=== PATIENT | male | born 1940 | race Caucasian/White ===

== ENCOUNTER 2020-10-25 06:47 | Emergency (ER) | payer OTHER ==
[~2020-10-25] VITALS: Ht 167.6 cm; Wt 67.1 kg
[2020-10-25 08:42] LABS: URINE BILIRUBIN NEGATIVE (Negative); URINE BLOOD 3+ (Negative); URINE CLARITY CLEAR; URINE COLOR YELLOW; URINE GLUCOSE-RANDOM* NEGATIVE (Negative); URINE KETONES NEGATIVE (Negative); URINE NITRITE-REFLEX NEGATIVE (Negative); URINE PROTEIN (DIPSTICK) 1+ (Negative); URINE SPECIFIC GRAVITY 1.015 (1.005-1.035); URINE UROBILINOGEN 0.2 E.U./dl (0.2-1.0)
[2020-10-25 08:45] LABS: URINE LEUKOCYTES-REFLEX 1+ (Negative)
[2020-10-25 08:51] LABS: BACTERIA-REFLEX 1-9 Few /HPF (None Seen); CRYSTALS None Seen /LPF (None Seen); SQUAMOUS None Seen /LPF (0-3); URINE RBC >20 Many /HPF (NONE SEEN); URINE WBC-REFLEX 6-15 Few /HPF (0-5)
[2020-10-25] MEDS ORDERED: CEPHALEXIN500 MG PO (09:11)
[2020-10-25 09:13] VITALS: BP 118/63
== END 2020-10-25 09:13 | disposition home or self-care (01) ==
LOC: ER 06:47
PROVIDERS: Emergency Medicine
DX: N39.0 Urinary tract infection, site not specified (principal); I10 Essential (primary) hypertension; E03.9 Hypothyroidism, unspecified; Z85.46 Personal history of malignant neoplasm of prostate

== ENCOUNTER 2020-10-28 09:38 | Inpatient (IN) | payer OTHER ==
[~2020-10-28] VITALS: Ht 170.2 cm; Wt 68.9 kg
[~2020-10-28 09:38] MED LIST: CEPHALEXIN500 MG PO
[2020-10-28 09:48] VITALS: BP 161/92
[2020-10-28 10:15] LABS: ABSOLUTE NEUTROPHILS 3.9 thou/uL (1.4-8.2); BASOPHILS 0.7 % (0.0-2.0); EOSINOPHILS 2.2 % (0.0-3.0); HEMATOCRIT 39.6 % (42.0-52.0); HEMOGLOBIN 13.3 gm/dL (14.0-18.0); LYMPHOCYTES 10.7 % (24.0-44.0); MCHC 33.5 g/dL (28.0-37.0); MCV 98.5 fL (80.0-100.0); MONOCYTES 10.3 % (1.0-8.0); PLATELET COUNT 373 thou/uL (150-400); POLYS 76.1 % (36.0-66.0); RBC 4.02 mil/uL (4.50-6.00); RDW 14.4 % (10.5-14.5); WBC 5.1 thou/uL (4.0-11.0)
[2020-10-28 10:28] LABS: POTASSIUM 4.3 mmol/L (3.5-5.1)
[2020-10-28 10:38] LABS: ALBUMIN 3.4 g/dL (3.4-5.0); TOTAL BILIRUBIN 0.5 mg/dL (0.2-1.0); TOTAL PROTEIN 7.3 g/dL (6.4-8.2)
[2020-10-28 11:29] LABS: URINE BILIRUBIN NEGATIVE (Negative); URINE BLOOD NEGATIVE (Negative); URINE CLARITY CLEAR; URINE COLOR YELLOW; URINE GLUCOSE-RANDOM* 1+ (Negative); URINE KETONES NEGATIVE (Negative); URINE LEUKOCYTES-REFLEX NEGATIVE (Negative); URINE NITRITE-REFLEX NEGATIVE (Negative); URINE PROTEIN (DIPSTICK) NEGATIVE (Negative); URINE UROBILINOGEN 0.2 E.U./dl (0.2-1.0)
[2020-10-28 17:05] VITALS: BP 172/90
[2020-10-28 17:50] VITALS: BP 141/82
[2020-10-28 18:09] VITALS: BP 139/85
[2020-10-28 20:17] VITALS: BP 104/61
--- NOTE | 2020-10-29 02:27 | NUR ---
PT ADMITTED TO THE UNIT AT 1815.PT CARE ASSUMED WITH PT COMFORTABLE IN BED.PT IS A/O X4.PT IS UP WITH STANDBY ASSIST WITH WALKER TO BATHROOM.PT IS ABLE TO CALL APPROPRIETELY FOR HELP.ADMISSION HISTORY AND ASSESSMENT DONE.T ON ROOM AIR.PT DENIED PAIN.PT HAS SOME BRUSING AROUND RT EYE.IV ACCESS ON RT AC SL.PT TO BRING LIST OF MEDICATION THIS AM FOR MED RECONCILIATION.WILL CONTINUE TO MONITOR AND ENDORSE TO DAY NURSE.
[2020-10-29 05:44] LABS: HEMATOCRIT 38.2 % (42.0-52.0); HEMOGLOBIN 13.3 gm/dL (14.0-18.0); MCH 34.3 pg (26.0-34.0); MCHC 34.7 g/dL (28.0-37.0); MCV 98.8 fL (80.0-100.0); RBC 3.87 mil/uL (4.50-6.00); RDW 14.6 % (10.5-14.5); WBC 5.7 thou/uL (4.0-11.0)
[2020-10-29 05:48] LABS: CALCIUM 8.8 mg/dL (8.5-10.1); POTASSIUM 4.5 mmol/L (3.5-5.1)
[2020-10-29 05:52] LABS: PHOSPHORUS 4.1 mg/dL (2.6-4.7)
[2020-10-29 07:27] VITALS: BP 137/83
--- NOTE | 2020-10-29 11:58 | EKG ---
[address] [place] [address] ELECTROCARDIOGRAM REPORT Name: MELVIN MCDOWELL Room #: 457-P ADM IN M.R.#: [id number] Admission: 10/28/20 Attend Phys: Josie French Discharge: Date of : 42 Report #: [id number] [facility] ED Test Date: 2020-10-28 Test Time: 09:49:28 Pat Name: MELVIN MCDOWELL Department: Room: [facility] Gender: M Cross Roller: SHANELL : 1940 Requested By: Josie French Order Number: [id number] MD: Shorty Maloney Measurements Intervals [place] Rate: 70 P: 66 TX: 191 QRS: -12 QRSD: 116 T: 46 QT: 404 QTc: 436 Interpretive Statements Sinus rhythm Nonspecific intraventricular conduction delay Anterior infarct, old Minimal ST depression, lateral leads No previous ECG available for comparison Electronically Signed On 10-29-2020 11:58:29 CDT by Shorty Maloney [email or web address] <ELECTRONICALLY SIGNED> By: Shorty Maloney MD 10/29/20 1158 0949 0949 Shorty Maloney MD /ISI
[2020-10-29 17:16] VITALS: BP 108/66
--- NOTE | 2020-10-29 18:48 | NUR ---
PT AMBULATED UNIQUE AND COMPLETED DAILY CARE BY SELF THIS SHIFT. DENIED PAIN OR SOA.
[2020-10-29 20:03] VITALS: BP 114/63
--- NOTE | 2020-10-30 02:37 | NUR ---
PT CARE ASSUMED WITH PT IN BED WATCHING TV.PT IS A/O X4.PT IS UP WITH STANDBY ASSIST TO BATHROOM.PT DOES PERSONAL HYGIENE BY SELF.PT DENIED PAIN N/V/D.PT ON ROOM AIR AND TAKE MEDS WHOLE WITH NO ISSUES.WILL CONTINUE TO MONITOR PER POC
[2020-10-30 06:04] LABS: CALCIUM 8.8 mg/dL (8.5-10.1); CREATININE 1.2 mg/dL (0.7-1.3); PHOSPHORUS 4.1 mg/dL (2.5-4.9); POTASSIUM 4.4 mmol/L (3.5-5.1)
--- NOTE | 2020-10-30 15:18 | NUR ---
PT RESTING COMFORTABLY WITH AT BEDSIDE. PT AFEBRILE, ADEQUATE UOP, NO BM, FAIR APPETITE. PT CONTINUES TO BE HYPONATREMIC. PT AND HAVE BEEN THOUROUGHLY UPDATED AND EDUCATED ON PT CONDITION AND POC. PT SLOWLY PROGRESSING TOWARDS POC.
--- NOTE | 2020-10-30 16:24 | NUR ---
PT ADMITTED RELATED TO HYPONATREMIA. CM REVEIWED CHART AND SPOKE WITH CARE TEAM. CM MET WITH PT AT BEDSIDE THIS DAY. PT IS FAMILIAR TO CM FROM PREVIOUS ADMISSIONS. CM RESIDES IN A HOUSE WITH HIS SPOUSE WITH A COUPLE STEPS TO ENTER AND NO STEPS INSIDE. PT INDICATED HE HAS A CANE AND A FWW FOR HOME USE. PT HAD BEEN ON SERVICE WITH [facility] A WEEK BEFORE ADMISSION. CM ASKED IF PT WAS RECEPTIVE TO HH UPON DC THIS TIME IF RECEOMMENDED PT INDICATED HE WASN'T SURE YET. CM FOLLOWING REGARDING DC PLANNING.
[2020-10-30 19:17] VITALS: BP 127/71
--- NOTE | 2020-10-31 03:59 | NUR ---
Pt. rested quietly during the night when checked on during frequent rounds. He offers no c/o pain. Up to the bathroom with stand by assistance. Bed alarm is on.
[2020-10-31 06:33] LABS: CALCIUM 8.8 mg/dL (8.5-10.1); CREATININE 1.1 mg/dL (0.7-1.3); POTASSIUM 4.6 mmol/L (3.5-5.1)
[2020-10-31 07:33] VITALS: BP 133/74
[2020-10-31 11:47] VITALS: BP 119/69
--- NOTE | 2020-10-31 16:03 | NUR ---
ASSUMED PT CARE THIS AM. PT A&OX4, ABLE TO MAKE NEEDS KNOWN. PATIENT UP WITH ASSIST TO THE BATHROOM, REMAINS CONTINENT. PATIENT REPORTING NO PAIN, NUMBNESS, OR TINGLING. IV PATENT, SALINE LOCKED. MEDICATIONS TAKEN WITHOUT ISSUE. PATIENT ON TELE. FALL PRECAUTIONS ARE IN PLACE, CALL LIGHT WITHIN REACH.
[2020-10-31 16:21] VITALS: BP 114/93
[2020-10-31 19:25] VITALS: BP 134/75
--- NOTE | 2020-11-01 03:54 | NUR ---
Pt. rested quietly during the night when checked on during frequet rounds. He offers no c/o pain or discomfort. Bed alarm is on.
[2020-11-01 07:19] VITALS: BP 133/69
[2020-11-01 09:54] LABS: CREATININE 1.2 mg/dL (0.7-1.3); POTASSIUM 4.6 mmol/L (3.5-5.1)
[2020-11-01 12:30] VITALS: BP 119/74
[2020-11-01] MEDS ORDERED: CEPHALEXIN500 MG PO (12:47)
--- NOTE | 2020-11-01 14:29 | NUR ---
PT TO DC HOME THIS DAY. PT TO DC HOME TO SELF CARE. PT HAS NEEDED DME. PT'S SPOUSE TO PROVIDE TRANSPORT HOME THIS DAY. NO OTHER CM INTERVENTION INDICATED. CASE CLOSED.
[2020-11-01 15:20] VITALS: BP 128/69
[2020-11-01 15:26] VITALS: BP 128/69
--- NOTE | 2020-11-01 15:29 | NUR ---
ASSUMED CARE OF PT AROUND 0700. THROUGHOUT THE DAY PT VOICED NO COMPLAINTS, VSS. AMBULATES WELL AND IS STABLE, NO COMPLAINTS OF PAIN. DISCHARGING NOW.
== END 2020-11-01 16:40 | disposition home or self-care (01) | DRG 641 ==
LOC: ER 09:38 → 4W 12:49 → EROBS 12:49 → 4W 17:50
PROVIDERS: Hospitalist; Student in an Organized Health Care Education/Training Program; ADMIT Hospitalist; ATTEND Hospitalist
DX: E87.1 Hypo-osmolality and hyponatremia (principal); N39.0 Urinary tract infection, site not specified; I10 Essential (primary) hypertension; E87.70 Fluid overload, unspecified; F41.9 Anxiety disorder, unspecified; I48.91 Unspecified atrial fibrillation; R63.1 Polydipsia; F39 Unspecified mood [affective] disorder; E03.9 Hypothyroidism, unspecified; Z96.653 Presence of artificial knee joint, bilateral; Z90.49 Acquired absence of other specified parts of digestive tract; Z85.46 Personal history of malignant neoplasm of prostate; Z92.3 Personal history of irradiation; Z88.5 Allergy status to narcotic agent; Z88.2 Allergy status to sulfonamides; Z87.440 Personal history of urinary (tract) infections
CPT/HCPCS: 10045

== ENCOUNTER 2020-12-02 15:26 | Inpatient (IN) | payer OTHER ==
[~2020-12-02] VITALS: Ht 167.6 cm; Wt 66.7 kg
[2020-12-02 15:41] VITALS: BP 150/86
[2020-12-02 16:28] LABS: ABSOLUTE NEUTROPHILS 4.3 thou/uL (1.4-8.2); BASOPHILS 0.6 % (0.0-2.0); EOSINOPHILS 2.4 % (0.0-3.0); HEMATOCRIT 39.9 % (42.0-52.0); HEMOGLOBIN 13.4 gm/dL (14.0-18.0); LYMPHOCYTES 12.5 % (24.0-44.0); MCH 33.1 pg (26.0-34.0); MCHC 33.4 g/dL (28.0-37.0); MCV 98.9 fL (80.0-100.0); MONOCYTES 11.9 % (1.0-8.0); PLATELET COUNT 249 thou/uL (150-400); POLYS 72.6 % (36.0-66.0); RBC 4.04 mil/uL (4.50-6.00); RDW 14.6 % (10.5-14.5); WBC 5.9 thou/uL (4.0-11.0)
[2020-12-02 16:32] LABS: URINE BILIRUBIN NEGATIVE (Negative); URINE BLOOD NEGATIVE (Negative); URINE CLARITY CLEAR; URINE COLOR YELLOW; URINE GLUCOSE-RANDOM* NEGATIVE (Negative); URINE KETONES NEGATIVE (Negative); URINE LEUKOCYTES-REFLEX NEGATIVE (Negative); URINE NITRITE-REFLEX NEGATIVE (Negative); URINE PROTEIN (DIPSTICK) NEGATIVE (Negative); URINE SPECIFIC GRAVITY 1.025 (1.005-1.035); URINE UROBILINOGEN 0.2 E.U./dl (0.2-1.0)
[2020-12-02 16:36] LABS: ANION GAP 8 mmol/L (7-16); BUN 26 mg/dL (7-18); CHLORIDE 101 mmol/L (98-107); CO2 26 mmol/L (21-32); CREATININE 1.1 mg/dL (0.7-1.3); GLUCOSE 119 mg/dL (74-106); POTASSIUM 4.9 mmol/L (3.5-5.1); SODIUM 135 mmol/L (136-145)
[2020-12-02 16:41] LABS: AMP/METHAMP Negative (Negative); BARBITURATES Negative (Negative); BENZODIAZEPINES Negative (Negative); COCAINE Negative (Negative); METHADONE Negative (Negative); OPIATES Negative (Negative); PCP Negative (Negative)
[2020-12-02 16:42] LABS: ALBUMIN 3.5 g/dL (3.4-5.0); DIRECT BILIRUBIN < 0.1 mg/dL (<0.1-0.2); SALICYLATE < 2.8 mg/dL (2.8-20.0); SGOT 48 U/L (15-37); SGPT 35 U/L (16-63); TOTAL BILIRUBIN 0.4 mg/dL (0.2-1.0); TOTAL PROTEIN 7.2 g/dL (6.4-8.2)
[2020-12-02 16:47] VITALS: BP 150/86
[2020-12-02] MEDS ORDERED: ZOLOFT25 MG PO (18:40)
[2020-12-02] MEDS ORDERED: VITAMIN D21250 MCG PO (18:41)
[2020-12-02] MEDS ORDERED: LEVOTHYROXINE75 MCG PO (18:42)
[2020-12-02] MEDS ORDERED: PROPAFENONE 22225 M1 PO (18:43)
[2020-12-02] MEDS ORDERED: PROPAFENONE 22225 MG (18:45)
[2020-12-02 23:20] VITALS: BP 126/72
--- NOTE | 2020-12-03 03:59 | NUR ---
12/03/20 0000 PATIENT ADMITTED FROM ER VIA WHEELCHAIR. PATIENT IS AAOX4. NO BELONGINGS BROUGHT WITH PATIENT. NO PAPERWORK BROUGHT WITH PATIENT. PATIET STATES THAT HE DOESNT NEED TO BE HERE. STATES THAT HE WAS NOT SUICIDAL REPORTED. PT STATES THAT HE BECAME CONFUSED BECAUSE HIS SODIUM LEVEL WAS LOW. PATIENT DID AGREE TO SIGN IN VOLUNTARILY. HE IS ABLE TO AMBULATE BUT IS UNSTEADY. WALKER WILL BE PROVIDED. VSS. NO SKIN ISSUES TO BE NOTED OTHER THAN A SCAR OVER HIS RIGHT EYE FROM FALL. WILL CONTINUE TO MONITOR FOR SAFETY.
[2020-12-03 07:01] LABS: CHOLESTEROL 169 mg/dL (<200); HDL CHOLESTEROL 52 mg/dL (>40); LDL CHOLESTEROL 101 mg/dL (<100); TC:HDL 3.3 Ratio (Not establshd); TRIGLYCERIDE 83 mg/dL (<150); VLDL 17 mg/dL (<40)
[2020-12-03 10:13] VITALS: BP 143/86
[2020-12-03 10:33] VITALS: BP 143/86
--- NOTE | 2020-12-03 15:41 | NUR ---
In person with pt. Pt. was in room. He was alert and oriented. The pt. was cooperative when answering quetions. He demonostrated appropriate affect, emotion and even made appropriate jokes. The pt. stated he was initially brought to the hospital by his daughter, Charlette, due to experiencing tremors and shakes. The pt. stated while talking to a hospital worker, he answered a question "wrong", resulting in the worker feeling that he had thoughts to harm himself. The pt. denies any suicidal ideation but does state he sometimes will think of not being here. However, the pt. denies any thoughts of taking any action towards this. The pt. reports being born in the [facility] located on [facility]. He has lived in [place] all his life. The pt. has lived in his current home for 38 years. He resides in the home with his daughter, Charlette. The pt. has a step-daughter that resides in [place], [place]. The pt.'s recently moved to an assisted living community. The pt. did not move with her as he stated he need to take care of cleaning up the home and getting it ready to sell. The pt. discussed having some emotions when his moved her things out of the home and knowing his needs some space; however, he states that he and his are not getting a divorce to his knowledge. The pt. states this situation has been stressful to him. He has lost weight and states his body feels worn down. Other than this, the pt. denies having any medication conditions with the exception of A-fib which has not been a problem for him in several years. The pt. is retired. 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 The pt. now receives $1700 monthly in [employer]. The pt. graduated from [employer]. He has taken a couple of college courses and manufacturing classes after high school. He was never in any branch of the service. The pt. was an only child. He was closer to his mother as his father was often on the road for work. The pt. has had some difficulties with sleeping. He states he eats well. The pt. reports to still driving. 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 The pt. describes himself as somewhere between Atheist and Agnostic. The pt. intended to return home with his daughter. He feels able to care for himself but does acknowledge some difficulties with memory. The pt. is able to make sandwiches, soup and other small things to eat. The pt. would like to work on regaining strength and getting rest while here. pt. now receives $1700 monthly in SSI. however, he states that he does not believe that he and her are getting a divorce. was born in the old [facility] located on [facility].
--- NOTE | 2020-12-03 15:52 | NUR ---
PATIENT CARE RESUMMED, PATIENT IN BED LYING SUPINE ASLEEP. PATIENT WAS WOKEN UP FOR BREAKFAST AND ROUNDS. PATIENT A&O*4, LUNG SOUNDS CLEAR, ABDOMEN SOFT WITH BOWEL SOUNDS PRESENT, AMBULATORY WITH WALKER AND SUPERVISON DUE TO WEAKNESS. PATIENT STATES AT HOME HE HAS FALLEN BECAUSE HIS LEGS "BECOME RUBBERY" AND HE JUST KAN HIS KNEES AND HE FALLS. PT EVALUTION ORDERED TODAY BY DEWAYNE, PATIENT STATED HES SO WORRIED ABOUT HIS STRENGTH IT MAKES HIM USPET. PATIENT DENIED HI/VH/AH AND BEING IN ANY PAIN. PATIENT DID STATE HE WAS FEELING SUICIDAL BUT DENIES HAVING A PLAN AT THIS TIME. PATIENT THEN STATES HE GETS TO ANXIOUS THAT HE GETS THESE "TICS/SHAKES" IN HIS EXTREMITIES. PATIENT STATES HE IS DEPRESSED AND ANXIOUS RATING BOTH A 5 ON A SCALE OF 0-10. PATIENT ALSO STATES HE STUGGLES WITH INSOMNIA AND BELIEVES HIS LACK OF SLEEP IS PLAYING A ROLL IN HIS INCREASED DEPRESSION/ANXIETY. NURSING STAFF REACHED OUT TO THE ON-CALL PSYCH DOCTOR IN REGARDS TO THE PATIENTS SI COMMENT TO STAFF. AN SI EVALUTION WAS THEN COMPLETED, THE PATIENT VOICED UNDERSTNADING AND STATED HE BELIEVES HIS COMMENTS WERE TAKEN OUT OF CONTEXT AND HE IS JUST STRESSED OUT AND ANXIOUS. THE PATIENT AND THE MEDICAL SCRIBE/RN SAT WITH THE PATIENT AND TALKED FOR RUFFLY FOR AN HOUR. WHERE THE PATIENT STATED "IT FEELS SO NICE TO JUST SIT AND TALK FOR ONCE." THE PATIENT WAS SMILING AND HAPPY. MEDICAL SCRIBE ALSO TALKED TO THE PATIENT ABOUT SITTING DOWN AND TALKING ABOUT DIFFERENT COPING SKILLS TO HELP WHEN ANXIETY/DEPRESSION INCREASE, THE PATIENT ACCEPTED HELP. FALL PREVENTIONS ARE IN PLACE AND WILL CONTINUE TO MONITOR THE PATIENT FOR SAFETY AND BEHAVIORS.
--- NOTE | 2020-12-03 16:08 | NUR ---
PATIENT'S DAUGHTER DWIGHT MCDOWELL CALLED AND WAS VERY CONCERNED ABOUT NOT RECEIVING ANY INFORMATION ABOUT HER FATHER. PATIENTS DAUGHTER DWIGHT STATES WHAT THE ER STATED ABOUT WHY HER FATHER WAS BROUGHT TO THE ER IS INCORRECT. PATIENTS DAUGHTER DWIGHT STATES SHE BROUGHT HER FATHER IN BECAUSE HE WAS SHAKING UNCONTROLLABLY. THE ER REPORTED THAT PATIENT WAS SUICIDAL AND THAT THE POLICE HAD TO COME TO HIS HOUSE AND THEY RETRIEVED SEVERAL FIREARMS. THE ER STATED THAT HE WAS SUICIDAL DUE TO HIS BEING PLACED IN A ASSISTED LIVING. DWIGHT THE PATIENTS DAUGHTER ASK ME TO WRITE THE NOTE ON THE PATIENT TO DISPUTE WHAT THE ER REPORTED. I CALLED SANJIV WARD OUR NURSE SWEEPER DRIVER TO INFORM HER ABOUT THE PHONE CALL WITH THE DAUGHTER DWIGHT HAINES. DWIGHT ALSO STATED THAT SHE IS MEETING WITH THE FAMILY LIVING MANAGER FOR DPOA FOR HER FATHER. I INFORMED HER SOMEONE WILL BE IN TOUCH WITH HER TOMMOROW. THIS IS HER PHONE NUMBER.
[2020-12-03 19:17] VITALS: BP 140/90
[2020-12-03 20:00] VITALS: BP 140/90
[2020-12-04 02:06] LABS: GLYCOHEMOGLOBIN (HGB A1C) 5.9 % (4.8-5.6)
--- NOTE | 2020-12-04 04:59 | NUR ---
PATIENT CARE WAS RESUMED AT 1900. HE IS A ALERT AND ORIENTED. MAX ASSIST WITH CARE. ABLE TO VERBALISE SOME NEEDS. LUNG ARE CLEAR. TOOK HIS MED WHLOE WAS LAYING IN BED. DENIES ANY PAINS AND DISCOMFORT. CONTINENENT OF BOWELL AND BLADDER. BED IS LOW, LOCKED AND ALARM. HE DENIES SI/AVH/HI. CONTTINUE CARE W
--- NOTE | 2020-12-04 07:30 | EKG ---
[address] [address] ELECTROCARDIOGRAM REPORT Name: MELVIN MCDOWELL Room #: 517-A ADM IN M.R.#: [id number] Admission: 12/02/20 Attend Phys: Jayden Winkler DO Discharge: Date of : 42 Report #: [id number] [facility] ED Test Date: 2020-12-02 Test Time: 16:18:42 Pat Name: MELVIN MCDOWELL Department: Room: [facility] Gender: M [place] Technician: IBRAHIMA NEWTON : 1940 Requested By: Jessica Gonzalez Order Number: [id number] MD: Bill Mark Measurements Intervals [place] Rate: 73 P: 35 FL: 204 QRS: -25 QRSD: 127 T: 44 QT: 409 QTc: 451 Interpretive Statements Sinus rhythm Left bundle branch block Compared to ECG 10/28/2020 09:49:28 Left bundle-branch block now present Intraventricular conduction delay no longer present Myocardial infarct finding no longer present ST (T wave) deviation no longer present Electronically Signed On 12-04-2020 7:30:39 CDT by Bill Mark [email or web address] <ELECTRONICALLY SIGNED> By: Bill Mark MD, FACC 12/04/20 0730 1618 1618 Bill Mark MD, FAC /EPI
[2020-12-04 08:58] VITALS: BP 147/81
[2020-12-04 08:59] VITALS: BP 147/81
--- NOTE | 2020-12-04 09:35 | NUR ---
New admit to [facility] for SI, anxiety, depression. Wt stable, BMI healthy 23.8, and pt eating 75-100% for first few meals. Presents low nutrition risk and will follow weekly for intake and wt trends, attend team meetings.
--- NOTE | 2020-12-04 15:39 | NUR ---
Assumed pt care at 0700. pt was alert and oriented x4. Assessments completed, vss. Lungs clear, active bowel sound. Took meds whole, no difficulty noted. Denies si/hi. Denies pain at this time. Ambulates with a walker. Calm and cooperative with care and assessments. C/O constipation. Requested for Enema. Pt concerns was reported to DR Winkler. Magnesium Citrate was administered to Pt. Reassessments pt stated that he had 4 bowel movement this shift. Continent of bowel and bladder. Makes needs known to staff. At this time pt is in his room resting. Will continue to monitor.
[2020-12-04 19:06] VITALS: BP 88/62
--- NOTE | 2020-12-05 02:45 | NUR ---
PATIENT IS ALERT AND ORIENTED, DENIES ALL PSYCH BUT APPEARS TO BE VERY ANXIOUS ABOUT BEING HERE. PATIENT IS MEDICATION COMPLIANT AND HAS SLEPT WELL THROUGH THE NIGHT.
[2020-12-05 09:17] VITALS: BP 137/86
--- NOTE | 2020-12-05 10:59 | NUR ---
Patient had been on the cordless phone in his room for 25 minutes speaking with his daughter. This nurse approached patient stating that others were needing to use the phone. Patient apologized, reported he had been on the phone for over 15 minutes and understood the rules. Patient told his daughter that he needed to get off the phone so other patients could utilize the phone. This nurse heard daughter yelling through the phone from across the room. Patient remained calm and explained to daughter that there were 2 phones and several patients. Nurse then heard patient telling his daughter "don't do that, stay calm, it will be ok". Patient attempted to hang up the phone over 2 minutes but this nurse kept hearing daughter yelling through the phone. After patient was able to hang up the phone, he then apologized again to this nurse. POT WASHER then approached patient and shower is being completed at this time.
[2020-12-05 11:01] VITALS: BP 137/86
--- NOTE | 2020-12-05 12:13 | NUR ---
PATIENT CARE RESUMMED, PATIENT IN BED LYING SUPINE ASLEEP. PATIENT SLEEP INTERUPTED FOR MORNING MEDICATION AND NURSING ASSESSMENT. PATIENT DENIES SI/AVH/HI AND HAVING ANY PAIN. PATIENT STATED HE IS STILL HAVING SOME ANXIETY AND DEPRESSION. PATIENT STATED TO BEHAVIORAL HEALTH CASE MANAGER "I'VE HAD A 180DEGREE TURN FROM WHEN I GOT HERE, I HAD HOPE & NOW I DON'T." PATIENT PRESENTS SAD, QUIET, WITHDRAWN DURING MORNING ASSESSMENT, BUT THROUGHOUT THE DAY THE PATIENT PRESENTED TO BE IN A MORE CHEERFUL ATTITUDE. THE PATIENT ATTENDED AFTERNOON GROUPS, AND MEALS STILL ARE EATEN IN THE ROOM. PATIENT IS MEDICATION AND MEAL COMPLIANT, LUNG SOUNDS ARE CLEAR, ABDOMEN IS SOFT WITH BOWEL SOUNDS PRESENT. PATIENTS INCREASE IN ANXIETY & DEPRESSION STATED TO BE INVOLVED AROUND HIS HOME LIFE. STATING HE IS "WORRIED ABOUT THE DISASTER UNFOLDING AT HOME." A&O*4 AND SHOWER GIVEN TODAY. FALL PREVENTIONS ARE IN PLACE, WILL CONTINUE TO MONITOR THE PT. FOR SAFETY AND BEHAVIORS.
--- NOTE | 2020-12-05 18:50 | NUR ---
RUBEN and Dr. Parham was able to speak with the Pt's daughter Charlette Hawkins [phone]. An update was provided and medications was discussed. Charlette was able to give some background. The Pt has delt with anxiety for many years. Recently the Pt has dealt with his moving out. 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 The Pt has been overwhelmed with decision making and has had a decline in his mental health over her past 4-5 months. Charlette has moved into the home with the Pt and plans to remain there with him. Charlette stated she is planning to find a smaller home that she and the Pt can live. Charlette stated that Pt has not recieved any otpt psychiatry. Pt's PCP is Dr. Patel. Discharge was set for 12/07/2020 @ 1300.
[2020-12-05 19:38] VITALS: BP 146/80
--- NOTE | 2020-12-06 05:38 | NUR ---
ASSUMED CARE ON 12/05/20 @ 1900, IN HIS ROOM READING A PAPERBACK FICTION NOVEL. cOOPERATED WITH ASSESSMENT, REPORTS WEAKNESS AND SHAKINESS, REPORTS HE HAS LOST WEIGHT BECAUSE OF A POOR APPETITE AFTER HIS VIRAL INFECTION. REPORTS DEPRESSION FROM GETTING OLD, "I TRY TO ACCEPT IT" DENIES ANXIETY, HALLUCINATIONS, SLEPT WELL OVERNIGHT. ROUNDING PER UNIT PROTOCOL.
[2020-12-06 10:26] VITALS: BP 152/90
[2020-12-06 10:51] VITALS: BP 152/90
--- NOTE | 2020-12-06 15:29 | NUR ---
ASSUMED CARE AT 0700 ON 12/06/20 - PATIENT IN ROOM AT CHANGE OF SHIFT. PLEASANT AND ACKNOWLEDGED THIS MEDICAL LANGUAGE SPECIALIST. STAYED IN ROOM FOR MEAL S DENIES S/I - ALERT AND ORIENTED. AMBULATORY - NO TREMORS WITNESSED TODAY. GOOD APPETITE - PLEASED BEING DISCHARGED TOMORROW.
--- NOTE | 2020-12-06 17:34 | NUR ---
The following appointment have been scheduled foe follow up by the Pt. This information has be put in the discharge summary. PCP-Dr. Diggs 12/14/2020 @ 1330 Psych[address]-Dr. Carmen Anderson 01/10/2021 @1400
[2020-12-06 19:25] VITALS: BP 134/78
[2020-12-07 09:13] VITALS: BP 129/70
[2020-12-07 09:47] VITALS: BP 129/70
[2020-12-07] MEDS ORDERED: COLACE100 MG PO (11:27)
[2020-12-07] MEDS ORDERED: REMERON15 M2 PO (11:27)
[2020-12-07 11:35] VITALS: BP 129/70
--- NOTE | 2020-12-07 16:29 | NUR ---
Patient care resummed, patient was up and in the dayroom upon rounds. Patient ambulatory with assistance from walker. Patient presented to FARM OPERATOR calm & pleasent. Patient reports having mild anxiety and depression, but states "Nothing new." Patient denies having SI/HI/AVH, and having any pain. Patient stated to FARM OPERATOR he was concerned about his blood surgar, and that may be his issue when his legs get all "rubbery." and were notified about patients concerns. Patient excited about going home today, states he wants to go see his . Lung sounds are clear, abdomen is soft with bowel sounds present, and is A&O*4. Patient was discharged at 1320, FARM OPERATOR assisted patient and dtr to the pharmacy to fruit or nut picker medications, then to there vehicle via W/C.
--- NOTE | 2020-12-08 23:10 | D ---
[facility] [place] [address] DISCHARGE SUMMARY Name: MELVIN MCDOWELL Room #: 519B-B DIS IN M.R.#: [id number] Admission: 12/02/20 Attend Phys: Jayden Winkler DO Discharge: 12/07/20 Date of : 42 Report #: [id number] THIS REPORT FOR: cc: Carleen Diggs MD, Nora P. MD Kerstein,Jayden Valle DO ~ DATE OF SERVICE: 12/07/2020 INPATIENT PSYCHIATRIC DISCHARGE SUMMARY ATTENDING PSYCHIATRIST: Jayden Winkler DO LAWN AND GARDEN TECHNICIAN: Seferino Preciado MD DISCHARGE DIAGNOSES: Major depressive disorder, unspecified degree. Additional diagnoses are history of hyponatremia, hypothyroidism, constipation. PLAN: The patient is being discharged to his private residence he lives at with his daughter. Psychiatric care for this patient was arranged with the help of the social media marketing analyst. He sees his PCP, Dr. Carleen Diggs on 12/06/2020 at 1330. He has inpatient psychiatric appointment with Dr. Carmen Anderson on 12/10/2020 at 1400. DISCHARGE MEDICATIONS: Include vitamin D 1250 mcg oral weekly, levothyroxine 75 mcg oral daily for replacement, propafenone antiarrhythmic 225 mg oral 3 times daily. New medications Mirtazipine 15 mg oral at bedtime, docusate 100 mg oral daily. The patient cannot have a regular diet. Recommending 1500 mL per day fluid restriction. Also, recommending to discuss his blood sugar concerns with his PCP. We really has not demonstrated diabetes this admission, but I understand he does have some risk factors. The patient has had E. coli, urine culture prior to admission on 10/26 when he was treated for. The patient also had a chest x-ray earlier in the month, which was negative. LABORATORY LIST: This admission on 12/02, white count 5.9, H and H 13.4, 39.9, platelets 249. Sodium 134, potassium 4.9, chloride 101, bicarbonate 26, anion gap 8, BUN 26, creatinine 1.1, estimated GFR 65. A1c 5.9, calcium 9.0, total bilirubin is 0.4, direct bilirubin is 0.1, AST 48, ALT 35, alkaline phosphatase 89, albumin 3.5, triglycerides 83, LDL 101, HDL 52. TSH 3.357. Urinalysis this admission was essentially largely negative. Toxicology negative. SARS-CoV-2 PCR was negative on admit. REASON FOR ADMISSION: A 80-year-old male brought by his daughter and complaining of tremors. There was a complaint of suicidal ideation with plan. He reportedly had access to firearms, knives at home. [facility] [address] [place] [address] DISCHARGE SUMMARY Name: JULYMELVIN Room #: 519B-B DIS IN M.R.#: [id number] Admission: 12/02/20 Attend Phys: Jayden Winkler DO Discharge: 12/07/20 Date of : 42 Report #: [id number] HOSPITAL COURSE: The patient was admitted to Geriatric Psychiatry Unit. I have resumed his case, after the weekend he was admitted. The patient reported to lose significant strength and stamina. 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 It sounds like the patient has taken on too much of late. With regards to this, the comeback of his daughter, had a family meeting, the patient was started on mirtazipine regimen. Discussed that there are a lot of issues that will require outside psychotherapy. I think we got things to calm down, but the patient on the unit seemed to be focused what he still had to do. Anyways, he is not an imminent threat to self/others at time of dischrage. PHYSICAL EXAMINATION: VITAL SIGNS: On day of discharge, temperature 36.5, pulse 86, respirations 18, BP 129/78. MUSCULOSKELETAL: Normal gait and station. MENTAL STATUS EXAMINATION: Well-developed, unkempt appearing male. Attention and concentration fair. Speech normal rate.volume/tone. Thought process: Linear and goal directed. Thought content: Focused on discharge. Mood and affect okay, congruent. Memory not formally tested. Insight and judgment fair to limited. Fund of knowledge at least average range. Prognosis for this patient is fair given his age of 80 and would be enhanced by his continued psychiatric treatment as well as psychotherapy. <ELECTRONICALLY SIGNED> By: Jayden Winkler DO 12/08/202309 24 21 Jayden Winkler DO /nt
== END 2020-12-07 13:30 | disposition home or self-care (01) | DRG 885 ==
LOC: ER 15:26 → EROBS 23:19 → SBH 23:19 → EROBS 23:22 → SBH 23:58
PROVIDERS: Emergency Medicine; Nurse Practitioner Psychiatric/Mental Health; ADMIT Psychiatry & Neurology Psychiatry; ATTEND Psychiatry & Neurology Psychiatry
DX: F32.2 Major depressive disorder, single episode, severe without psychotic features (principal); R45.851 Suicidal ideations; F41.9 Anxiety disorder, unspecified; I10 Essential (primary) hypertension; Z20.822 Contact with and (suspected) exposure to COVID-19; E03.9 Hypothyroidism, unspecified; Z96.653 Presence of artificial knee joint, bilateral; K59.00 Constipation, unspecified; I48.91 Unspecified atrial fibrillation; G47.00 Insomnia, unspecified; Z79.899 Other long term (current) drug therapy; Z85.46 Personal history of malignant neoplasm of prostate; Z92.3 Personal history of irradiation; Z90.49 Acquired absence of other specified parts of digestive tract; Z88.2 Allergy status to sulfonamides; Z88.6 Allergy status to analgesic agent; Z88.8 Allergy status to other drugs, medicaments and biological substances; Z23 Encounter for immunization
CPT/HCPCS: 10880